=== PATIENT | female | born 1965 | race Native Hawaiian/Other Pacific Islander ===

== ENCOUNTER 2019-08-26 12:33 | Emergency (ER) | payer OTHER ==
[~2019-08-26] VITALS: Ht 170.2 cm; Wt 90.7 kg
[2019-08-26 12:40] VITALS: TEMP 97.8
[2019-08-26 13:04] LABS: PLATELET COUNT 199 K/uL (152-353)
[2019-08-26 13:15] LABS: POTASSIUM 4.5 mmol/L (3.6-5.2); SODIUM 144 mmol/L (136-145)
[2019-08-26 13:28] LABS: PARTIAL THROMBOPLASTIN TIME 25.4 SECONDS (24.5-33.6)
[2019-08-26 16:28] VITALS: BP 120/77
== END 2019-08-26 16:26 | disposition home or self-care (01) ==
LOC: ED 12:33
PROVIDERS: Student in an Organized Health Care Education/Training Program
DX: R55 Syncope and collapse (principal); F17.210 Nicotine dependence, cigarettes, uncomplicated
CPT/HCPCS: 36415; 80053; 81000; 82962; 83735; 84443; 84484; 85027; 85610; 85730; 93005; 96360; 96375; 99284; J1885; J2765